=== PATIENT | male | born 1940 | race Caucasian/White ===

== ENCOUNTER 2017-05-11 13:27 | Emergency (ER) | payer MEDICARE, BC ==
[~2017-05-11] VITALS: Ht 175.3 cm; Wt 73.6 kg
[2017-05-11 14:57] LABS: BASOPHILS % (AUTO) 0.3 % (0-1); EOSINOPHILS # (AUTO) 0.1 X10'3 (0-0.9); EOSINOPHILS % (AUTO) 1.4 % (0-6); HEMATOCRIT 45.6 % (42.0-52.0); HEMOGLOBIN 15.4 g/dl (14.0-17.9); LYMPHOCYTES % (AUTO) 16.9 % (21-51); MEAN CORPUSCULAR HEMOGLOBIN 33.4 PG (27.0-31.0); MEAN CORPUSCULAR HGB CONC 33.8 % (33.0-36.5); MEAN CORPUSCULAR VOLUME 98.9 FL (78-98); MEAN PLATELET VOLUME 7.4 FL (7.4-10.4); MONOCYTES # (AUTO) 0.7 X10'3 (0-0.9); MONOCYTES % (AUTO) 12.1 % (2-12); NEUTROPHILS # (AUTO) 4.2 X10'3 (1.8-7.7); NEUTROPHILS % (AUTO) 69.3 % (42-75); PLATELET COUNT 210 X10'3 (140-440); RED CELL DISTRIBUTION WIDTH 12.8 % (11.5-14.5)
[2017-05-11 15:08] LABS: PARTIAL THROMBOPLASTIN TIME 27 SECONDS (22-32); PROTHROMBIN TIME 10.8 SECONDS (9.0-12.0)
[2017-05-11 15:11] LABS: ALANINE AMINOTRANSFERASE 21 U/L (12-78); ALBUMIN 4.1 G/DL (3.4-5.0); ALBUMIN/GLOBULIN RATIO 1.2 (1.1-1.5); ALKALINE PHOSPHATASE 209 IU/L (46-116); ANION GAP 9 (8-16); ASPARTATE AMINO TRANSFERASE 21 U/L (10-37); BILIRUBIN,TOTAL 1.2 MG/DL (0.1-1.0); BLOOD UREA NITROGEN 20 MG/DL (7-18); BUN/CREATININE RATIO 16.7 (5.4-32.0); CALCIUM 9.1 MG/DL (8.5-10.1); CHLORIDE 102 MMOL/L (99-107); GLUCOSE 102 MG/DL (70-104); SODIUM 138 MMOL/L (135-145); TOTAL CARBON DIOXIDE 27.4 MMOL/L (24-32); TOTAL PROTEIN 7.5 G/DL (6.4-8.2); eGFR 59 ML/MIN
[2017-05-11 15:12] LABS: LIPASE 78 U/L (73-393)
[2017-05-11 15:51] LABS: CLARITY,URINE CLEAR (Clear); COLOR,URINE YELLOW (Yellow); GLUCOSE, URINE NEGATIVE (Neg); KETONES,URINE NEGATIVE (Neg); LEUKOCYTE ESTERASE ,URINE NEGATIVE (Neg); NITRITES, URINE NEGATIVE (Neg); OCCULT BLOOD,URINE NEGATIVE (Neg); PROTEIN,URINE NEGATIVE (Neg); UROBILINOGEN,URINE 0.2 E.U/dL (0.2-1.0)
[2017-05-11 15:52] LABS: UA COLLECTION TYPE CLN CATCH MIDSTREAM
[2017-05-11 15:57] LABS: C-REACTIVE PROTEIN 0.72 MG/DL (0.0-0.5)
[2017-05-11 17:10] VITALS: BP 155/87
== END 2017-05-11 17:13 | disposition home or self-care (01) ==
LOC: ER 13:28
DX: R33.9 Retention of urine, unspecified (principal); R19.09 Other intra-abdominal and pelvic swelling, mass and lump; N40.0 Benign prostatic hyperplasia without lower urinary tract symptoms
CPT/HCPCS: 36415; 51702; 71045; 74176; 80053; 81003; 83690; 84153; 85025; 85610; 85651; 85730; 86140; 93005; 99285; A4315; A4344; A4353

== ENCOUNTER 2017-05-24 14:02 | Emergency (ER) | payer MEDICARE, BC ==
[~2017-05-24] VITALS: Ht 175.3 cm; Wt 65.0 kg
[2017-05-24 14:54] VITALS: BP 109/84
== END 2017-05-24 14:55 | disposition home or self-care (01) ==
LOC: ER 14:03
DX: R33.9 Retention of urine, unspecified (principal); T83.038A Leakage of other urinary catheter, initial encounter
CPT/HCPCS: 51702; 99284; A4315

== ENCOUNTER 2018-11-26 16:51 | Emergency (ER) | payer MEDICARE, BC ==
[~2018-11-26] VITALS: Ht 177.8 cm; Wt 71.3 kg
[2018-11-26] MEDS ORDERED: TETanus/Pertussis (Acell)/Diphther VAC/PF (Tdap-Adult) 0.5ml syringe IM ONE (17:45)
--- NOTE | 2018-11-26 18:11 | NUR ---
CLEANED RIGHT SIDE OF FACE WITH STERILE WATER AND GAUZE NOTED TWO LARGE ABRASIONS, PT DENIES BLOOD THINNERS, LOC, SPLINT IN PROCESS OF APPLICATION
[2018-11-26 18:50] VITALS: BP 138/51
== END 2018-11-26 18:57 | disposition home or self-care (01) ==
LOC: ER 16:51
DX: S52.591A Other fractures of lower end of right radius, initial encounter for closed fracture (principal); S60.221A Contusion of right hand, initial encounter; S00.81XA Abrasion of other part of head, initial encounter; W01.198A Fall on same level from slipping, tripping and stumbling with subsequent striking against other object, initial encounter; Y93.02 Activity, running; Y92.89 Other specified places as the place of occurrence of the external cause; Y99.8 Other external cause status
CPT/HCPCS: 29125; 73110; 90471; 99284

== ENCOUNTER 2018-12-05 14:39 | Outpatient (CLI) | payer MEDICARE, BC ==
[2018-12-05 14:40] VITALS: BP 129/76
== END 2018-12-05 16:25 | disposition home or self-care (01) ==
LOC: ORTHO 14:39
PROVIDERS: ATTEND Orthopaedic Surgery
DX: S52.571D Other intraarticular fracture of lower end of right radius, subsequent encounter for closed fracture with routine healing (principal); W20.8XXD Other cause of strike by thrown, projected or falling object, subsequent encounter
CPT/HCPCS: 29075; 73110; A4590; G0463

== ENCOUNTER 2018-12-25 15:18 | Outpatient (CLI) | payer MEDICARE, BC | END 2018-12-25 16:31 | disposition home or self-care (01) | LOC: ORTHO 15:18 | PROVIDERS: ATTEND Orthopaedic Surgery | DX: S52.571D Other intraarticular fracture of lower end of right radius, subsequent encounter for closed fracture with routine healing (principal); X58.XXXD Exposure to other specified factors, subsequent encounter | CPT/HCPCS: 73110 ==